=== PATIENT | female | born 1995 | race Caucasian/White ===

== ENCOUNTER 2021-03-01 10:46 | Emergency (ER) | payer MEDICAID, SELFPAY ==
[2021-03-01 11:23] VITALS: BP 144/87; PULSE 92; RESP 18; TEMP 37.2; O2SAT 98; BMI 31.8
--- NOTE | 2021-03-01 12:23 | ED.DENTAL ---
HPI - Dental/Oral General Chief complaint: Dental/Oral <PARVEEN Mcclellan Last Filed: 03/01/21 17:49> Stated complaint: DENTAL PAIN <PARVEEN Mcclellan Last Filed: 03/01/21 17:49> Time Seen by Provider: 03/01/21 11:53 <PARVEEN Mcclellan Last Filed: 03/01/21 17:49> Source: patient <PARVEEN Mcclellan Last Filed: 03/01/21 17:49> Mode of arrival: ambulatory <PARVEEN Mcclellan Last Filed: 03/01/21 17:49> History of Present Illness HPI Narrative: 25-year-old female with no significant past medical history presenting to the ED complaining of right-sided lower dental pain x5 days with mild associated right-sided facial swelling. Reports chronic dental issues. Denies fever, chills, drainage, sore throat <PARVEEN Mcclellan Last Filed: 03/01/21 17:49> Related Data Home medications: Previous Rx's Medication Instructions Recorded acetaminophen [Tylenol Extra 500 mg PO Q6H PRN #20 tab 03/01/21 Strength] amoxicillin-pot clavulanate 1 tab PO Q12H 7 Days #14 tab 03/01/21 [Augmentin] hydrocodone-acetaminophen 1 tab PO Q8H PRN 3 Days #9 tab 03/01/21 ibuprofen 400 mg PO Q6H 7 Days #28 tab 03/01/21 <PARVEEN Mcclellan Last Filed: 03/01/21 17:49> Allergies/adverse reactions: Allergies Allergy/AdvReac Type Severity Reaction Status Date / Time No Known Allergies Allergy Verified 03/01/21 12:25 <PARVEEN Mcclellan Last Filed: 03/01/21 17:49> Review of Systems Review of Systems: Constitutional: No Fever, No Chills ENT/Mouth: No Ear Pain, No Hoarseness, No sore throat, No Swallowing Difficulty, +dental pain Cardiovascular: No Chest Pain, No SOB Musculoskeletal: No joint pain, No Myalgias Skin: No rash <PARVEEN Mcclellan Last Filed: 03/01/21 17:49> Yes all other systems are reviewed and are negative <PARVEEN Mcclellan Last Filed: 03/01/21 17:49> [facility] Past Medical History Attestation statement: The following information was validated with the patient. <PARVEEN Mcclellan - Last Filed: 03/01/21 17:49> Surgical History: Surgical History (Updated 03/01/21 @ 11:26 by Keli Del Cid) Previous section <PARVEEN Mcclellan - Last Filed: 03/01/21 17:49> Social History Social History: Social History Alcohol intake: never Smoked in Last 30 Days: No Use of substances other than those prescribed or required for medical reasons: No Any prior treatment program specific to substance use: No Advance Directives: No Advance Directives Information Provided: No <PARVEEN Mcclellan - Last Filed: 03/01/21 17:49> Physical Exam Vital Signs: Vital Signs: Last Vital Signs Temp 98.9 F 03/01/21 11:23 Pulse 92 03/01/21 11:23 Resp 18 03/01/21 11:23 BP 144/87 H 03/01/21 11:23 Pulse Ox 98 03/01/21 11:23 Body Mass Index 31.8 <PARVEEN Mcclellan - Last Filed: 03/01/21 17:49> Vital Signs: Last Vital Signs Temp 98.9 F 03/01/21 11:23 Pulse 92 03/01/21 11:23 Resp 18 03/01/21 11:23 BP 144/87 H 03/01/21 11:23 Pulse Ox 98 03/01/21 11:23 Body Mass Index 31.8 <Sandro Bryan MD - Last Filed: 03/09/21 16:58> Const: General: cooperative, healthy appearing and no acute distress <PARVEEN Mcclellan - Last Filed: 03/01/21 17:49> Orientation/consciousness: patient oriented x3 <PARVEEN Mcclellan - Last Filed: 03/01/21 17:49> Limitations: no limitations <PARVEEN Mcclellan - Last Filed: 03/01/21 17:49> HENMT: Other: Diffuse dental caries. Right lower molar with tenderness to palpation. No surrounding gingivitis, erythema, cellulitis, fluctuance or induration <PARVEEN Mcclellan - Last Filed: 03/01/21 17:49> Head: Yes normal to inspection <Magnolia Pimentel PA - Last Filed: 03/01/21 17:49> Ears: hearing grossly normal bilaterally and TM's normal bilaterally <Magnolia Pimentel PA - Last Filed: 03/01/21 17:49> General nose exam: Normal external nose present <Magnolia Pimentel PA - Last Filed: 03/01/21 17:49> Face and sinus: Yes normal facial exam <Magnolia Pimentel PA - Last Filed: 03/01/21 17:49> Mouth: Normal oral and palatal mucosa present and no drooling <Magnolia Pimentel PA - Last Filed: 03/01/21 17:49> Teeth and gingiva: caries and poor dentition <Magnolia Pimentel PA - Last Filed: 03/01/21 17:49> Throat: Yes posterior oropharynx normal, Yes uvula midline and No peritonsillar mass <Magnolia Pimentel PA - Last Filed: 03/01/21 17:49> Eyes: General: appearance normal, both eyes and all related structures <Magnolia Pimentel PA - Last Filed: 03/01/21 17:49> EOM: EOMs intact bilaterally <Magnolia Pimentel PA - Last Filed: 03/01/21 17:49> Neck: Neck: Yes normal visual inspection, Yes no meningeal signs, Yes supple and No anterior neck swelling <Magnolia Pimentel PA - Last Filed: 03/01/21 17:49> Resp: Effort & Inspection: normal respiratory effort, not labored and no stridor <Magnolia Pimentel PA - Last Filed: 03/01/21 17:49> Cardio: Rate: regular rate <Magnolia Pimentel PA - Last Filed: 03/01/21 17:49> Skin: Rashes: no rashes <Magnolia Pimentel PA - Last Filed: 03/01/21 17:49> Wounds: no wounds <Magnolia Pimentel PA - Last Filed: 03/01/21 17:49> Neuro: General: patient oriented x3 and no meningeal signs <Magnolia Pimentel PA - Last Filed: 03/01/21 17:49> Gait exam (Neuro): Normal gait present <PARVEEN Mcclellan - Last Filed: 03/01/21 17:49> Extrem: General: Yes normal to inspection <PARVEEN Mcclellan - Last Filed: 03/01/21 17:49> Course Course Course Narrative: I have reviewed the chart <Sandro Bryan MD - Last Filed: 03/09/21 16:58> MDM - Dental/Oral MDM Narrative Medical decision making narrative: On exam VSS, NAD, diffuse dental caries with right lower molar tenderness. No active dental abscess/infection appreciated. Will initiate antibiotics, and stressed importance of following up with dentist <PARVEEN Mcclellan - Last Filed: 03/01/21 17:49> Discharge Plan Discharge Clinical Impression: Dental caries <PARVEEN Mcclellan Last Filed: 03/01/21 17:49> Patient Disposition: Home, Self-Care <PARVEEN Mcclellan Last Filed: 03/01/21 17:49> Instructions: Mouth Care (ED) <PARVEEN Mcclellan - Last Filed: 03/01/21 17:49> Additional Instructions: You need to follow-up with a dentist as soon as possible Augmentin as an antibiotic, take as prescribed In addition ibuprofen and Tylenol help with her pain/swelling [place] was an opiate pain medication, take only when pain is severe for the next 3 days Be aware [place] has Tylenol mixed in, do not exceed 4 g of Tylenol in 1 day Ice her face If pain persists or worsens, you do not fever, any facial swelling or redness return to the ED <PARVEEN Mcclellan Last Filed: 03/01/21 17:49> Prescriptions: New amoxicillin-pot clavulanate [Augmentin] 875-125 mg tablet 1 tab PO Q12H 7 Days Qty: 14 RF: 0 hydrocodone-acetaminophen 5-325 mg tablet 1 tab PO Q8H PRN (Reason: pain) 3 Days Qty: 9 RF: 0 acetaminophen [Tylenol Extra Strength] 500 mg tablet 500 mg PO Q6H PRN (Reason: pain or fever) Qty: 20 RF: 0 ibuprofen 400 mg tablet 400 mg PO Q6H 7 Days Qty: 28 RF: 0 <PARVEEN Mcclellan Last Filed: 03/01/21 17:49> Referrals: Melodie aCtherine, SU [Dentist] - 2 days Dereck Aviles DDS [Physician] - 2 days <PARVEEN Mcclellan - Last Filed: 03/01/21 17:49> Interventions: ED Discharge Assessment Last Done: 03/01/21 12:34 <PARVEEN Mcclellan - Last Filed: 03/01/21 17:49> Discharge Date/Time: 03/01/21 12:39 <PARVEEN Mcclellan - Last Filed: 03/01/21 17:49>
== END 2021-03-01 12:39 | disposition home or self-care (01) ==
PROVIDERS: Emergency Provider Emergency Medicine
DX: K08.89 Other specified disorders of teeth and supporting structures (principal); K02.9 Dental caries, unspecified
CPT/HCPCS: 99283; 99284

== ENCOUNTER 2021-10-25 09:40 | Emergency (ER) | payer MEDICAID, SELFPAY ==
--- NOTE | ~2021-10-25 | CT_ITS ---
EXAMINATION: CT FACIAL BONES AND CT NECK WITH CONTRAST CLINICAL INFORMATION: Facial swelling. Retropharyngeal abscess. Gum/sinus abscess. COMPARISON: None TECHNIQUE: CT of the face and neck was performed following the intravenous administration of 85 mL Omnipaque 350. Multiplanar reformats were rendered and reviewed. This CT examination was performed using dose optimization techniques as appropriate, variously including the following: *Automated exposure control *Adjustment of mA and/or kV according to patient size (this includes techniques or standardized protocols for targeted exams where dose is matched to indication/reason for exam; i.e. extremities or head) *Use of iterative reconstruction technique DLP: 657 mGy-cm FINDINGS: There is complete opacification of the left frontal sinus including the frontoethmoidal recess. There is severe polypoid opacification the bilateral ethmoids and opacification of the sphenoethmoidal recesses. Minimal mucosal thickening is seen in the right sphenoid sinus. There is mild to moderate polypoid thickening in the bilateral maxillary sinuses and mild polypoid thickening in the nasal cavities. The ethmoidal infundibula are both opacified. The nasal septum is deviated towards the left. The ethmoid roof is slightly lower on the right. The lamina papyracea are intact. The carotid impressions are covered by bone. Severe dental disease is present within the maxillary and mandibular dentition with large caries. Multiple periapical abscesses are seen. There is fairly diffuse periodontal disease. Mild asymmetric swelling is seen within the right mandibular gingivobuccal tissues without rim-enhancing collection. There is asymmetric stranding and fluid within the right submandibular triangle best seen on series 7 image 219/417. Reactive appearing cervical lymph nodes are identified asymmetrically prominent in the right submandibular triangle. Enlarged level 2 lymph nodes are seen measuring up to 2.1 cm on the right. No intranodal abscess is seen. The parotid glands appear normal. No definite submandibular gland inflammation is seen. The pharyngeal contours appear normal. The palatine tonsils are prominent but without inflammation. There is no retropharyngeal collection. The adenoids are prominent but do not narrow the nasopharyngeal airway. The laryngeal contours appear normal with symmetric vocal folds. The thyroid gland is unremarkable. No enlarged upper mediastinal lymph nodes are seen. There is no consolidation within the upper lungs. The major neck vessels are normally opacified. The imaged intracranial contents appear normal. The cervical spine is intact without destructive change. CT/CT soft tissue neck w con IMPRESSION: Severe disease within the maxillary and mandibular dentition with multiple periapical abscesses demonstrated. Asymmetric swelling within the right mandibular gingivobuccal tissues likely represents reaction to the odontogenic pathology. No drainable soft tissue collection is seen. There is stranding and fluid within the right submandibular triangle. Reactive lymph nodes are seen in the right more the left upper neck. No retropharyngeal collection. 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
[2021-10-25 10:33] VITALS: BP 131/64; PULSE 89; RESP 16; TEMP 36.8; O2SAT 100; BMI 31.6
--- NOTE | 2021-10-25 11:16 | ED_ITS ---
HPI - General Adult General Chief complaint: Dental/Oral Stated complaint: Facial swelling Time Seen by Provider: 10/25/21 10:44 Source: patient Mode of arrival: ambulatory Limitations: no limitations History of Present Illness HPI narrative: 26-year-old female with history of poor dental hygiene presents to the ED for facial swelling that began last night and worsening today. Patient states history of poor teeth which all right upper and right lower tooth needs to be extracted for over 1 year but has not been able to follow-up with dentist. Patient states yesterday showed have some dental pain in upper and lower molars and had slight swelling in lower jaw then this morning woke up with right-sided facial swelling of lower jaw right cheek and going up to upper cheeck. Patient denies any trauma to the face, headache, dizziness, drooling, or shortness of breath. 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 Patient denies any history of IV drug use Related Data Previous Rx's Medication Instructions Recorded acetaminophen 500 mg tablet 500 mg PO Q6H PRN #20 tab 03/01/21 (Tylenol Extra Strength) amoxicillin 875 mg-potassium 1 tab PO Q12H 7 Days #14 tab 03/01/21 clavulanate 125 mg tablet (Augmentin) hydrocodone 5 mg-acetaminophen 325 1 tab PO Q8H PRN 3 Days #9 tab 03/01/21 mg tablet ibuprofen 400 mg tablet 400 mg PO Q6H 7 Days #28 tab 03/01/21 amoxicillin 875 mg-potassium 1 tab PO Q12H 10 Days #20 tab 10/25/21 clavulanate 125 mg tablet (Augmentin) ketorolac 10 mg tablet 10 mg PO Q6H 5 Days #20 tab 10/25/21 Allergies Allergy/AdvReac Type Severity Reaction Status Date / Time No Known Allergies Allergy Verified 03/01/21 12:25 Review of Systems Review of Systems: Yes all other systems are reviewed and are negative Constitutional: Constitutional: Reports as per HPI and Reports no additional constitutional complaints Eyes: Eyes: Reports as per HPI and Reports no additional eye complaints ENT: Reports system reviewed and no additional complaints, except as documented and Reports as per HPI Comments: Dental pain facial swelling Cardiovascular: Cardiovascular: Reports as per HPI and Reports no additional cardiovascular complaints Respiratory: Respiratory: Reports as per HPI and Reports no additional respiratory complaints Gastrointestinal: Gastrointestinal: Reports as per HPI and Reports no additional gastrointestinal complaints Genitourinary: Genitourinary: Reports no additional female genitourinary complaints and Reports as per HPI Musculoskeletal: Musculoskeletal: Reports no additional musculoskeletal complaints and Reports as per HPI Neurologic: Reports system reviewed and no additional complaints, except as documented and Reports as per HPI Psychiatric: Psychiatric: Reports no additional psychiatric complaints and Reports as per HPI [facility] Past Medical History Surgical History (Updated 03/01/21 @ 11:26 by Keli Del Cid) Previous section Social History Social History Alcohol intake: never Advance Directives: No Advance Directives Information Provided: Yes Patient : No Physical Exam Vital Signs: Vital Signs: Last Vital Signs Temp 98.4 F 10/25/21 12:39 Pulse 89 10/25/21 12:39 Resp 18 10/25/21 12:39 BP 114/65 10/25/21 12:39 Pulse Ox 99 10/25/21 12:39 BMI result Body Mass Index 31.6 Const: General: cooperative, healthy appearing, comfortable, no acute distress, well developed, alert, awake, Physically active and acute distress Orientation/consciousness: patient oriented x3 HENMT: Head: Yes normal to inspection, Yes No palpable skull fracture present, Yes normocephalic and Yes atraumatic Head images: 1. Positive for right-sided facial swelling. Negative for fluctuant mass on palpation. Oral exam positive for poor dental hygiene of ri ght upper and lower molars with dental caries and decay. All molars are tender to palpation. Negative for gum erythema/mass to indicate abscess. Tonsils normal. Negative for signs of peritonsillar abscess. Patient is speaking in clear sentences and negative for any drooling. Negative for any lip swelling Eyes: General: appearance normal, both eyes and all related structures Neck: Neck: Yes normal visual inspection, Yes full ROM, Yes no lymphadenopathy, Yes no meningeal signs, Yes trachea midline, Yes supple, No anterior neck swelling and No tender Chest: Chest palpation & inspection: normal inspection of the chest and normal palpation of entire chest wall Resp: Effort & Inspection: normal respiratory effort and able to speak in complete sentences Auscultation: clear to auscultation bilaterally Cardio: Jugular venous distension: no JVD Heart sounds: S1 normal heart sound present and S2 normal heart sound present GI: Inspection: Yes normal to inspection and No abdominal wall ecchymosis Palpation (GI): Soft to palpation, not firm, nontender, no guarding and not rigid : General: No CVA tenderness and Yes no CVA tenderness Back/Spine/Pelvis: Back: no CVA tenderness, No CVA tenderness and No back tenderness Skin: General skin exam: no rashes or lesions noted and elasticity normal Neuro: General: patient oriented x3, gait normal, no meningeal signs and CN's II-XI intact bilaterally Cranial nerves: Yes CN's II-XII intact bilaterally Extrem: General: Yes normal to inspection and Yes full ROM Psych: Appearance: grossly normal, well kempt and not disheveled Course Course Course Narrative: Patient's swelling mostly due to poor dental Decay/tooth infection but due to increased speed of swelling of right side face and some mandibular involvement will do imaging to make sure there is no retropharyngeal abscess and no osteomyelitis of the mandible or any gum abscess that will need to be drained. Or severe infection going of sinuses. Reevaluation(s) Reevaluation #1: CT scan shows multiple Cam apical abscess/dental infection. Patient will be discharged with oral antibiotics and pain meds. Negative for peritonsillar abscess or Seth's angina. Negative for any drainable abscess Time: 13:49 Medical Decision Making [facility] Narrative Medical decision making narrative: Dental infection Lab Data Result diagrams: 10/25/21 11:15 10/25/21 11:15 Labs: Lab Results 10/25/21 10/25/21 10/25/21 Range/Units 11:15 11:15 11:15 WBC 9.4 (4.8-10.8) X10*3/uL RBC 3.89 L (4.20-5.50) X10*6/uL Hgb 11.4 L (12.0-16.0) g/dl Hct 35.1 L (37.0-47.0) % MCV 90.2 (80.0-98.0) fL MCH 29.3 (27.0-33.0) pg MCHC 32.5 (31.0-35.0) g/dl RDW 13.5 (11.0-16.0) % Plt Count 266 (160-400) X10*3/uL MPV 8.9 L (9.4-12.3) fL Immature Gran % (Auto) 0.3 (0.0-0.4) % Neut % (Auto) 73.1 H (45-73) % Lymph % (Auto) 18.8 L (20-40) % [place] % (Auto) 7.7 (2-11) % Eos % (Auto) 0.0 (0-4) % Baso % (Auto) 0.1 (0-2) % Lymph # (Auto) 1.8 (1.2-4.9) X10*3/uL [place] # (Auto) 0.7 (0.1-1.2) X10*3/uL Eos # (Auto) 0.0 (0.0-0.4) X10*3/uL Baso # (Auto) 0.0 (0.0-0.2) X10*3/uL Abs Immat Gran (auto) 0.03 (0.00-0.03) X10*3/uL Absolute Neuts (auto) 6.9 (2.0-8.3) x10*3/uL Absolute Nucleated RBC 0.000 (0.0-0.012) X10*3/uL Nucleated RBC % (auto) 0.0 (0.0-0.2) /100WBC Sodium 139 (135-145) mmol/L Potassium 4.0 (3.3-5.1) mmol/L Chloride 106 (96-108) mmol/L Carbon Dioxide 25 (22-29) mmol/L Anion Gap 12 (12-20) BUN 12 (9-16) mg/dL Creatinine 0.62 (0.5-1.4) mg/dL Estim Creat Clear Calc 137.4 Estimated GFR > 60 Random Glucose 96 (60-115) mg/dL Lactic Acid 1.3 (0.5-2.0) mmol/L Calcium 9.6 (8.4-10.2) mg/dL Total Bilirubin 0.4 (0.0-1.0) mg/dL AST 15 (5-31) U/L ALT 9 (0-31) U/L Alkaline Phosphatase 74 (39-117) U/L Total Protein 7.6 (6.5-8.0) g/dL Albumin 4.3 (3.5-5.0) g/dL Beta HCG, Quant < 2 mIU/mL Discharge Plan Discharge Clinical Impression: Dental abscess, Toothache Patient Disposition: Home, Self-Care Instructions: Dental Abscess (ED), Toothache (ED) Additional Instructions: CT scan shows multiple tooth infections with abscess at the root of tooth which will need to be extracted after taking antibiotics. You need to follow-up with dentist for tooth extraction. Return to ED for worsening facial swelling, d rooling, shortness of breath, neck swelling, fever, chills, weakness, dizziness, or any other concerning symptoms. Please follow-up with your dentist Prescriptions: New amoxicillin-pot clavulanate [Augmentin] 875-125 mg tablet 1 tab PO Q12H 10 Days Qty: 20 RF: 0 ketorolac 10 mg tablet 10 mg PO Q6H 5 Days Qty: 20 RF: 0 No Action amoxicillin-pot clavulanate [Augmentin] 875-125 mg tablet 1 tab PO Q12H 7 Days Qty: 14 RF: 0 hydrocodone-acetaminophen 5-325 mg tablet 1 tab PO Q8H PRN (Reason: pain) 3 Days Qty: 9 RF: 0 acetaminophen [Tylenol Extra Strength] 500 mg tablet 500 mg PO Q6H PRN (Reason: pain or fever) Qty: 20 RF: 0 ibuprofen 400 mg tablet 400 mg PO Q6H 7 Days Qty: 28 RF: 0 Interventions: ED Discharge Assessment Last Done: 10/25/21 14:05 Discharge Date/Time: 10/25/21 14:07 Print Language: Turkish
[2021-10-25 11:22] LABS: MANUAL DIFF FLAG NO
[2021-10-25 11:23] LABS: Basophils Percent Auto 0.1 % (0-2); Hematocrit 35.1 % (37.0-47.0); Hemoglobin 11.4 g/dl (12.0-16.0); Imm Gran Abs Auto 0.03 X10*3/uL (0.00-0.03); Imm Gran Pct Auto 0.3 % (0.0-0.4); Lymphocytes Absolute Auto 1.8 X10*3/uL (1.2-4.9); Lymphocytes Percent Auto 18.8 % (20-40); Mean Corpuscular HGB Conc 32.5 g/dl (31.0-35.0); Mean Corpuscular Hemoglobin 29.3 pg (27.0-33.0); Mean Corpuscular Volume 90.2 fL (80.0-98.0); Mean Platelet Volume 8.9 fL (9.4-12.3); Monocytes Absolute Auto 0.7 X10*3/uL (0.1-1.2); Monocytes Percent Auto 7.7 % (2-11); Neutrophils Absolute Auto 6.9 x10*3/uL (2.0-8.3); Neutrophils Percent Auto 73.1 % (45-73); Platelet Count 266 X10*3/uL (160-400); Red Blood Count 3.89 X10*6/uL (4.20-5.50); Red Cell Distribution Width 13.5 % (11.0-16.0); White Blood Count 9.4 X10*3/uL (4.8-10.8)
[2021-10-25 11:37] LABS: Lactic Acid 1.3 mmol/L (0.5-2.0)
[2021-10-25 11:45] LABS: Alanine Aminotransferase 9 U/L (0-31); Albumin Level 4.3 g/dL (3.5-5.0); Alkaline Phosphatase 74 U/L (39-117); Anion Gap 12 (12-20); Aspartate Amino Transferase 15 U/L (5-31); Bilirubin Total 0.4 mg/dL (0.0-1.0); Blood Urea Nitrogen 12 mg/dL (9-16); Calcium 9.6 mg/dL (8.4-10.2); Carbon Dioxide 25 mmol/L (22-29); Chloride 106 mmol/L (96-108); Creatinine Clr Calc Pharmacy 137.4; Estimated Glomerular Filt Rate > 60; Glucose Random 96 mg/dL (60-115); Sodium 139 mmol/L (135-145); Total Protein 7.6 g/dL (6.5-8.0)
[2021-10-25 11:51] LABS: HCG Quantitative < 2 mIU/mL
[2021-10-25] MEDS: Clindamycin Phosphate/D5W 600 MG/50 ML PIGGYBACK 100 MG IV (11:57)
[2021-10-25] MEDS: Ketorolac Tromethamine 30 MG/ML VIAL IVPUSH (12:02)
[2021-10-25 12:39] VITALS: BP 114/65; PULSE 89; RESP 18; TEMP 36.9; O2SAT 99
== END 2021-10-25 14:07 | disposition home or self-care (01) ==
PROVIDERS: Physician Assistant; Emergency Provider Emergency Medicine
DX: K04.7 Periapical abscess without sinus (principal); K08.89 Other specified disorders of teeth and supporting structures
CPT/HCPCS: 36415; 70487; 70491; 80053; 83605; 84702; 85025; 87040; 96365; 96375; 99284; J1885

== ENCOUNTER 2022-03-30 09:52 | Emergency (ER) | payer MEDICAID, SELFPAY ==
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
[2022-03-30 09:56] VITALS: BP 126/79; PULSE 93; O2SAT 100
[2022-03-30 10:00] VITALS: BP 122/86; PULSE 109; RESP 18; TEMP 37.2; O2SAT 100; BMI 31.8
[2022-03-30] MEDS: Acetaminophen 325 MG TABLET 975 MG PO (10:29)
[2022-03-30] MEDS: Diphth,Pertus(ACell),Tet Adult 0.5 ML SYRINGE IM (10:30)
[2022-03-30 12:00] VITALS: RESP 17
== END 2022-03-30 12:01 | disposition home or self-care (01) ==
PROVIDERS: Emergency Provider Emergency Medicine
DX: S80.02XA Contusion of left knee, initial encounter (principal); S80.212A Abrasion, left knee, initial encounter; V43.52XA Car driver injured in collision with other type car in traffic accident, initial encounter; Y93.9 Activity, unspecified; Y92.410 Unspecified street and highway as the place of occurrence of the external cause; Y99.9 Unspecified external cause status; Z79.899 Other long term (current) drug therapy
CPT/HCPCS: 73562; 90471; 90715; 99283; 99284

== ENCOUNTER 2022-08-24 16:45 | Emergency (ER) | payer MEDICAID, SELFPAY ==
[2022-08-24 16:51] VITALS: BP 152/89; PULSE 118; O2SAT 100
[2022-08-24 16:56] VITALS: BP 131/79; PULSE 110; RESP 18; TEMP 37.2; O2SAT 98; BMI 30.9
--- NOTE | 2022-08-24 18:10 | PC.NURSE ---
Called to triage for lab work. No answer. Presumed LWT
== END 2022-08-24 18:59 | disposition left against medical advice (07) ==
LOC: HO.ED 18:44
PROVIDERS: Emergency Provider Emergency Medicine
DX: F41.9 Anxiety disorder, unspecified (principal); Z72.89 Other problems related to lifestyle; Z59.89 Other problems related to housing and economic circumstances
CPT/HCPCS: 99281